=== PATIENT | male | born 2000 | race Two or more races ===

== ENCOUNTER 2022-06-24 21:13 | Emergency (ER) | payer OTHER ==
[~2022-06-24] VITALS: Ht 170.2 cm; Wt 103.4 kg
[2022-06-24] MEDS ORDERED: ZOLOFT100 MG PO (21:24)
== END 2022-06-24 23:36 | disposition home or self-care (01) ==
LOC: ER 21:13
DX: R42 Dizziness and giddiness (principal); F32.A Depression, unspecified

== ENCOUNTER 2023-01-08 14:05 | Emergency (ER) | payer OTHER ==
[~2023-01-08] VITALS: Ht 170.2 cm; Wt 96.2 kg
[~2023-01-08 14:05] MED LIST: ZOLOFT100 MG PO
[2023-01-08] MEDS ORDERED: RISPERDAL1 MG (14:11)
== END 2023-01-08 16:59 | disposition home or self-care (01) ==
LOC: ER 14:05
DX: R05.9 Cough, unspecified (principal)

== ENCOUNTER 2023-01-11 17:09 | Emergency (ER) | payer OTHER ==
[~2023-01-11] VITALS: Ht 167.6 cm; Wt 90.7 kg
[~2023-01-11 17:09] MED LIST changes: +RISPERDAL1 MG
[2023-01-11] MEDS ORDERED: DICLOFENAC SODI75 MG PO (18:43)
[2023-01-11] MEDS ORDERED: NORFLEX100MG PO (18:43)
== END 2023-01-11 19:39 | disposition home or self-care (01) ==
LOC: ER 17:09
DX: M54.50 Low back pain, unspecified (principal); J45.909 Unspecified asthma, uncomplicated; F41.8 Other specified anxiety disorders; Z98.890 Other specified postprocedural states

== ENCOUNTER 2023-01-15 19:15 | Emergency (ER) | payer OTHER ==
[~2023-01-15] VITALS: Ht 170.2 cm; Wt 96.2 kg
[~2023-01-15 19:15] MED LIST changes: +DICLOFENAC SODI75 MG PO; +NORFLEX100MG PO
== END 2023-01-15 23:09 | disposition home or self-care (01) ==
LOC: ER 19:15
DX: R07.89 Other chest pain (principal)

== ENCOUNTER 2023-01-16 21:11 | Emergency (ER) | payer OTHER ==
[~2023-01-16] VITALS: Ht 170.2 cm; Wt 96.2 kg
== END 2023-01-16 21:42 | disposition home or self-care (01) ==
LOC: EMR PED 21:11 → ER 21:13 → EMR PED 21:13 → ER 21:42
DX: F41.8 Other specified anxiety disorders (principal)

== ENCOUNTER 2023-01-17 22:33 | Emergency (ER) | payer OTHER ==
[~2023-01-17] VITALS: Ht 170.2 cm; Wt 96.2 kg
== END 2023-01-17 23:19 | disposition home or self-care (01) ==
LOC: ER 22:33
DX: F41.9 Anxiety disorder, unspecified (principal); R06.02 Shortness of breath

== ENCOUNTER 2023-05-11 18:04 | Emergency (ER) | payer OTHER ==
[~2023-05-11] VITALS: Ht 170.2 cm; Wt 91.6 kg
== END 2023-05-11 19:29 | disposition home or self-care (01) ==
LOC: ER 18:04
DX: L03.90 Cellulitis, unspecified (principal); M79.672 Pain in left foot

== ENCOUNTER → 2023-06-20 | Emergency (ER) | payer OTHER | END | disposition left against medical advice (07) | LOC: ER 14:33 | DX: Z53.21 Procedure and treatment not carried out due to patient leaving prior to being seen by health care provider (principal) ==

== ENCOUNTER 2023-10-30 21:16 | Emergency (ER) | payer OTHER ==
[~2023-10-30] VITALS: Ht 160 cm; Wt 81.6 kg
[2023-10-30] MEDS ORDERED: DEXAMETHASONE SODIUM PHOSPHATE 4 MG/ML VIAL IM ONE (21:45)
[2023-10-30] MEDS ORDERED: GUAIFENESIN/DEXTROMETHORPHAN 10ML BLIST.PACK PO ONE ×2 (21:45→21:51)
[2023-10-30] MEDS ORDERED: DEXAMETHASONE SODIUM PHOSPHATE 4 MG/ML VIAL ONE (21:51)
[2023-10-31] MEDS ORDERED: ZYNCOF 20-400120 ML PO (02:40)
== END 2023-10-31 02:45 | disposition home or self-care (01) ==
LOC: ER
DX: R05.8 Other specified cough (principal); Z88.6 Allergy status to analgesic agent; Z20.822 Contact with and (suspected) exposure to COVID-19

== ENCOUNTER 2024-10-09 16:33 | Emergency (ER) | payer OTHER ==
[~2024-10-09] VITALS: Ht 170.2 cm; Wt 90.7 kg
[~2024-10-09 16:33] MED LIST changes: +ZYNCOF 20-400120 ML PO
[2024-10-09] MEDS ORDERED: ZOLOFT25 MG (16:38)
[2024-10-09] MEDS ORDERED: RISPERDAL2 MG (16:38)
[2024-10-09] MEDS ORDERED: DIPHENOXYLATE HCL/ATROPINE 1 UDTAB TABLET PO ONE (17:00)
[2024-10-09] MEDS ORDERED: ONDANSETRON HCL 2 MG/ML VIAL IV ONE (17:00)
[2024-10-09 17:16] LABS: BASO % 0.5 % (0.1-1.2); EOS # 0.28 (0.04-0.54); EOS % 5.0 % (0.7-7.0); LYMPH # 1.53 (1.18-3.74); LYMPH % 27.4 % (19.3-53.1); MEAN PLATELET VOLUME 9.10 fl (9.4-12.4); MONO # 0.45 (0.24-0.82); MONO % 8.1 % (4.7-12.5); NEUT # 3.25 (1.56-6.13); NEUT % 58.3 % (34.0-71.1); RED CELL DISTRIBUTION WIDTH 11.9 % (11.6-14.4)
[2024-10-09 17:44] LABS: ALT/SGPT 52.0 U/L (12-78); AST/SGOT 19.0 U/L (15-37); BILIRUBIN TOTAL 0.98 mg/dL (0.3-1.2); BUN CREA RATIO 26.0 (7.0-25.0); CREATININE SERUM 0.58 mg/dL (0.70-1.30); GFR 172.13; GLOBULINA 3.6 G/DL (2.4-3.5); GLUCOSE FASTING 92.0 mg/dL (65-100); OSMOLALITY SERUM 285.0 MOSM/KG (275-295)
[2024-10-09] MEDS ORDERED: PEPCID AC20 MG PO (18:10)
[2024-10-09] MEDS ORDERED: INTESTINEX680 M1 PO (18:10)
== END 2024-10-09 18:44 | disposition home or self-care (01) ==
LOC: ER
PROVIDERS: General Practice
DX: K29.70 Gastritis, unspecified, without bleeding (principal); R10.9 Unspecified abdominal pain; Z88.6 Allergy status to analgesic agent